=== PATIENT | male | born 1945 | race Caucasian/White ===

== ENCOUNTER → 2016-09-03 | Outpatient (CLI) | payer OTHER | LOC: FIMAGING 15:14 | PROVIDERS: ATTEND Family Medicine | DX: M79.89 Other specified soft tissue disorders (principal); M79.672 Pain in left foot ==

== ENCOUNTER → 2016-10-22 | Outpatient (CLI) | payer OTHER | LOC: FIMAGING 06:38 | PROVIDERS: ATTEND Pain Medicine Interventional Pain Medicine | DX: M17.11 Unilateral primary osteoarthritis, right knee (principal); M25.461 Effusion, right knee ==

== ENCOUNTER → 2016-11-15 | Outpatient (CLI) | payer OTHER | LOC: FIMAGING 12:56 | DX: M76.892 Other specified enthesopathies of left lower limb, excluding foot (principal); M24.851 Other specific joint derangements of right hip, not elsewhere classified ==

== ENCOUNTER → 2016-12-19 | Outpatient (CLI) | payer OTHER | LOC: FIMAGING 08:03 | PROVIDERS: ATTEND Orthopaedic Surgery Foot and Ankle Surgery | DX: M76.822 Posterior tibial tendinitis, left leg (principal); M77.8 Other enthesopathies, not elsewhere classified; Q74.2 Other congenital malformations of lower limb(s), including pelvic girdle; M24.175 Other articular cartilage disorders, left foot; M54.9 Dorsalgia, unspecified; M25.559 Pain in unspecified hip; M48.06 Spinal stenosis, lumbar region; M48.07 Spinal stenosis, lumbosacral region ==

== ENCOUNTER → 2018-07-29 | Outpatient (CLI) | payer OTHER, MEDICARE | LOC: FIMAGING 18:20 | PROVIDERS: ATTEND Physical Medicine & Rehabilitation Pain Medicine | DX: M75.81 Other shoulder lesions, right shoulder (principal); M75.21 Bicipital tendinitis, right shoulder; M19.011 Primary osteoarthritis, right shoulder ==

== ENCOUNTER → 2018-11-23 | Outpatient (CLI) | payer OTHER, MEDICARE | LOC: BMCIMAGING 09:37 | PROVIDERS: ATTEND Family Medicine | DX: M79.645 Pain in left finger(s) (principal) ==